=== PATIENT | female | born 1980 | race Caucasian/White ===

== ENCOUNTER 2020-06-15 05:25 | Inpatient (IN) | payer OTHER ==
[2020-06-15] MEDS ORDERED: Oxytocin/Normal Saline 60 UNIT/1,000 ML BAG ONE (08:12)
--- NOTE | 2020-06-15 08:20 | US ---
PROCEDURE INFORMATION: Exam: US Biophysical Profile With Non-Stress Test Exam date and time: 06/15/2020 7:20 AM Age: 39 years old Clinical indication: status abnormalities: ; Abnormal heart rate; Single gestation; Third trimester (28 wks 0 days until delivery); ; Patient HX: Decreased heart variability, breech TECHNIQUE: Imaging protocol: biophysical profile with non-stress test. COMPARISON: No relevant prior studies available. FINDINGS: Gestation: Single viable intrauterine gestation in breech presentation. heart rate: heart rate is 146 beats minute. Amniotic fluid index: Amniotic fluid index is 3.6 cm with the largest pocket measuring 1.9 cm. BIOPHYSICAL PROFILE: Breathin/2 Gross body movements: 2/2 tone: 2/2 Qualitative amniotic fluid: 0/2 Reactive heart rate: 0/2 Biophysical Profile Score: 10/10 IMPRESSION: Single viable intrauterine gestation in breech presentation. Total biophysical profile score is 4/10.
[2020-06-15] MEDS ORDERED: Sodium Chloride 0.9% 10 ML Syringe FLUSH PRN (08:25)
[2020-06-15] MEDS ORDERED: Tranexamic Acid 1,000 MG in Sodium Chloride 0.9% 100 ML IV PRN ×2 (08:25→09:56)
[2020-06-15] MEDS ORDERED: ceFAZolin 2 GM in Premix Bag 1 BAG IV ONE (08:25)
[2020-06-15] MEDS ORDERED: Citric Acid/Sodium Citrate Solution 30 ML Cup PO ONE (08:25)
[2020-06-15] MEDS ORDERED: Oxytocin/Normal Saline 30 UNIT/500 ML BAG IV SCH (08:30)
[2020-06-15] MEDS ORDERED: Lactated Ringers 1,000 ML IV SCH ×2 (08:30)
--- NOTE | 2020-06-15 09:31 | HP ---
HISTORY OF PRESENT ILLNESS: This is a 39-year-old, G3, P1-0-1-1 at 38 weeks and 3 days with a complicated by advanced maternal age and A1 gestational diabetes, presented to triage this morning with some light vaginal bleeding. Still movement. No loss of fluid. Some rare contractions. OB HISTORY: The patient has had 1 vaginal delivery, 1 elective termination. 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 PAST MEDICAL HISTORY: Negative. PAST SURGICAL HISTORY: [place] teeth removed. SOCIAL HISTORY: The patient does not smoke. ALLERGIES: The patient has no known drug allergies. LABS: Blood type is A positive, antibody negative, rubella immune, syphilis negative, hep B negative, HIV negative, gonorrhea and chlamydia negative, hep C negative. Her 1 hour was 202. She also had a 3 hour that was also abnormal. Quad screen was negative. Group B strep was positive and she did have a screening ultrasound, which was normal and interval growth scan was normal. PHYSICAL EXAMINATION: The patient's blood pressure 150/79. The patient is afebrile. The EFM does show accels with variability, but does have late decels. She has rare contractions. BPP unfortunately showed the infant is still breech, she did have an attempted version a few weeks back, and the BPP is 4/8, off for fluid and breathing. No active bleeding in the triage room. ASSESSMENT AND PLAN: A 39-year-old, G3, P1-0-1-1 with a complicated by A1 gestational diabetes and advanced maternal age, now with persistent breech presentation and non-reassuring testing in the setting of vaginal bleeding as well as elevated blood pressure. Therefore, we will send -induced hypertension labs. The patient does consent to a primary due to the abnormal BPP and breech presentation. We will proceed this morning. [facility] /[id number] [facility]NEUR HEALTHAlfie
[2020-06-15] MEDS ORDERED: Ondansetron 4 MG/2 ML SDV IVPUSH PRN (09:56)
[2020-06-15] MEDS ORDERED: diphenhydrAMINE 50 MG/ML SDV IVPUSH PRN (09:56)
[2020-06-15] MEDS ORDERED: Naloxone 2 MG/2 ML Syringe IVPUSH PRN (09:56)
[2020-06-15] MEDS ORDERED: Misoprostol 400 MCG (4 X 100 MCG TAB) RECTAL PRN (09:56)
[2020-06-15] MEDS ORDERED: Methylergonovine 0.2 MG/1 ML Amp IM PRN (09:56)
[2020-06-15] MEDS ORDERED: Carboprost Tromethamine 250 MCG/1 ML Amp IM PRN (09:56)
[2020-06-15] MEDS ORDERED: Acetaminophen 325 MG Tab PO PRN (09:56)
[2020-06-15] MEDS ORDERED: ePHEDrine 50 MG/ML SDV IVPUSH PRN (09:56)
[2020-06-15] MEDS: Lactated Ringers 1,000 ML IV SCH ×2 (12:25→21:43)
[2020-06-15] MEDS: Simethicone 80 MG Tab.Chew PO SCH ×3 (12:59→21:38)
--- NOTE | 2020-06-15 13:01 | OR ---
DATE: 06/15/2020 LOCATION: [facility]. PREOPERATIVE DIAGNOSES: This is an intrauterine at 38 weeks' gestational age with breech presentation, had failed external cephalic version previously. complicated by gestational diabetes and advanced maternal age. The patient now with vaginal bleeding and nonreassuring biophysical profile. POSTOPERATIVE DIAGNOSES: This is an intrauterine at 38 weeks' gestational age with breech presentation, had failed external cephalic version previously. complicated by gestational diabetes and advanced maternal age. The patient now with vaginal bleeding and nonreassuring biophysical profile. PROCEDURE: Primary low transverse section. SURGEON: Dr. Vasquez. BONDACTOR MACHINE OPERATOR: Dr. Jane. FINDINGS: There was a viable , weight 5 pounds 13 ounces. score was 8 and 9. ESTIMATED BLOOD LOSS: 500 mL. PROCEDURE IN DETAIL: The patient did arrive on Labor and Delivery with some mild vaginal bleeding. She had previously had an external cephalic version attempted. With the vaginal bleeding, BPP was performed and it was 4/10. She did lose points for breathing, low fluid and there were some late decels on the monitoring. Therefore, she did consent to a primary low-transverse section. She was taken to the operating room where she was prepped and draped in a normal sterile fashion with a Anguiano in place and a leftward tilt. The skin incision was made 2 fingerbreadths above the pubic symphysis, carried down to the underlying fascia. Fascia was incised in the midline. Fascial incision was extended laterally with heavy scissors. Upper aspect of the fascia was grasped with Jorge clamps and the rectus muscles were dissected off bluntly and with the Bovie. Lower aspect of the fascia was grasped with Jorge clamps and again the rectus muscles were dissected off bluntly and with the Bovie. Rectus muscles were in the midline. Peritoneum was entered with blunt finger dissection. The peritoneum was stretched open. Bladder was inserted. Vesicouterine peritoneum was grasped with a pickup, entered sharply with a Metzenbaum scissors, and the bladder flap was created digitally. Bladder blade was reinserted. Lower uterine segment was incised in a transverse fashion and then incision was extended using the Tee method. AROM was clear. The infant's breech was brought out of the hysterotomy. The legs were swept. Both arms were swept and the head was delivered without any difficulty. The cord was clamped and cut. The was handed off to the waiting labor and delivery nurse. The placenta was already starting to deliver at that time, therefore, it was delivered. The uterus was exteriorized and cleared of all clots and debris. The hysterotomy was repaired with a running locked 0 Vicryl with a 2nd layer of 0 Vicryl imbricating. Ovaries, tubes, and uterus all appeared normal. They were returned to the abdomen. The pelvis was copiously irrigated. Peritoneum was reapproximated using a running 3-0 Vicryl. Fascia was repaired using a running 0 Vicryl. The subcutaneous fat was irrigated and the skin was repaired using a 4-0 Monocryl on a Mac needle with Steri-Strips over that. The patient tolerated the procedure well. Sponge, lap, and needle counts were correct x2, and the patient was taken to the recovery room in stable condition to be with her baby. [facility] /[id number] MTDD
[2020-06-15] MEDS: Ketorolac 30 MG/ML SDV IVPUSH SCH ×2 (17:01→21:38)
[2020-06-15] MEDS: Docusate Sodium 100 MG Cap PO PRN (21:38)
[2020-06-16] MEDS: Ketorolac 30 MG/ML SDV IVPUSH SCH (04:02)
[2020-06-16 06:04] LABS: ANION GAP 15.9 mEq/L (7-13); CHLORIDE,CL 105 mmol/L (98-107); SODIUM,NA 139 mmol/L (136-145)
[2020-06-16] MEDS: Simethicone 80 MG Tab.Chew PO SCH ×4 (09:34→21:53)
[2020-06-16] MEDS: Docusate Sodium 100 MG Cap PO PRN ×2 (09:34→21:53)
[2020-06-16] MEDS: Prenatal Multivitamin with Calcium/Folic Acid/Iron Tab PO SCH (09:34)
[2020-06-16] MEDS: Acetaminophen/oxyCODONE 325-5 MG Tab PO PRN ×4 (09:34→21:54)
[2020-06-16] MEDS: Ibuprofen 800 MG Tab PO PRN ×2 (12:37→21:53)
--- NOTE | 2020-06-16 19:01 | PN ---
DATE: 06/16/2020 SUBJECTIVE: The patient is postoperative day 1 status post primary for breech. She also has A1 gestational diabetes. Mom and baby are both doing well. She is starting to tolerate p.o. and does have good pain control. PHYSICAL EXAMINATION: Vital Signs: The patient is afebrile. Heart rate 62 to 76, blood pressure 106 to 123 systolic over 54 to 68 diastolic, respiratory rate 16 to 18, O2 sat 97% to 98%. Abdomen: Benign. Extremities: Have no tenderness. No edema. Dressing is clean, dry, and intact. The patient's blood type is A positive. She is rubella immune. COVID negative. The patient's preoperative hemoglobin was 13.3. This morning, hemoglobin 10.1. Platelets mildly low at 148. Chem-7 was normal. Blood glucose this morning was 86, which is reassuring. The patient also did have PIH labs on admission. Those were normal. Protein-creatinine ratio was 0.2. ASSESSMENT AND PLAN: Postoperative day #1 status post primary with A1 gestational diabetes. The patient can stop checking her blood glucoses as her blood glucose this morning was great. The patient will continue postoperative cares, primarily removing the Anguiano and making sure we can void. [facility] /[id number] MTDD
[2020-06-17] MEDS: Acetaminophen/oxyCODONE 325-5 MG Tab PO PRN ×4 (02:41→21:14)
[2020-06-17] MEDS: Prenatal Multivitamin with Calcium/Folic Acid/Iron Tab PO SCH (08:08)
[2020-06-17] MEDS: Simethicone 80 MG Tab.Chew PO SCH ×4 (08:08→21:13)
[2020-06-17] MEDS: Docusate Sodium 100 MG Cap PO PRN ×2 (08:09→21:13)
[2020-06-17] MEDS: Ibuprofen 800 MG Tab PO PRN ×2 (08:10→16:46)
[2020-06-17] MEDS ORDERED: Oxytocin/Normal Saline 30 UNIT/500 ML BAG IV ONE (10:05)
[2020-06-17] MEDS ORDERED: Dexamethasone 4 MG/ML SDV IV ONE (16:01)
[2020-06-17] MEDS ORDERED: Ketorolac 30 MG/ML SDV IVPUSH ONE (16:01)
[2020-06-17] MEDS ORDERED: Lactated Ringers 1,000 ML IV ONE (16:01)
[2020-06-17] MEDS ORDERED: Ondansetron 4 MG/2 ML SDV IV ONE (16:01)
[2020-06-17] MEDS ORDERED: Morphine PF 1 MG/ML Amp ITHECAL ONE (16:01)
--- NOTE | 2020-06-17 23:49 | PCM.PN ---
- General Info Date of Service: 06/17/20 (POD #2) - Patient Data Vitals - Most Recent: Last Vital Signs Temp 98.9 F 06/17/20 20:00 Pulse 78 06/17/20 20:00 Resp 16 06/17/20 20:00 BP 140/70 06/17/20 20:00 Pulse Ox 100 06/17/20 20:00 Weight - Most Recent: 195 lb I&O - Last 24 Hours: Intake & Output 06/17/20 06/17/20 06/18/20 14:59 22:59 06:59 Intake Total 100 Balance 100 Med Orders - Current: Current Medications Acetaminophen (Tylenol) 650 mg PO Q6H PRN PRN Reason: Mild Pain (1-3) or Fever Carboprost Tromethamine (Hemabate Ds) 250 mcg IM ONETIME PRN PRN Reason: Bleeding Diphenhydramine HCl (Benadryl) 25 mg IVPUSH Q6H PRN PRN Reason: Itching or Nausea Docusate Sodium (Colace) 100 mg PO Q12H PRN PRN Reason: Constipation Last Admin: 06/17/20 21:13 Dose: 100 mg Documented by: Ephedrine Sulfate (Ephedrine Sulfate) 5 mg IVPUSH SEECOMMENT PRN PRN Reason: Other Lactated Ringer's (Ringers, Lactated) 1,000 mls @ 500 mls/hr IV .BOLUS BLANE Last Admin: 06/15/20 08:30 Dose: 500 mls/hr Documented by: Oxytocin/Sodium Chloride (Pitocin In Ns 30 Unit/500 Ml) 30 unit in 500 mls @ 2 mls/hr IV TITRATE BLANE; Protocol Last Titration: 06/15/20 12:00 Dose: 0 munits/min, 0 mls/hr Documented by: Lactated Ringer's (Ringers, Lactated) 1,000 mls @ 125 mls/hr IV ASDIRECTED BLANE Last Admin: 06/15/20 21:43 Dose: 125 mls/hr Documented by: Tranexamic Acid 1,000 mg/ (Sodium Chloride) 110 mls @ 660 mls/hr IV ONETIME PRN PRN Reason: Bleeding Ibuprofen (Motrin) 800 mg PO Q8H PRN PRN Reason: Cramping Last Admin: 06/17/20 16:46 Dose: 800 mg Documented by: Methylergonovine Maleate (Methergine) 0.2 mg IM ONETIME PRN PRN Reason: Excessive Vaginal Bleeding Misoprostol (Cytotec) 800 mcg RECTAL ASDIRECTED PRN PRN Reason: Excessive bleeding Naloxone HCl (Narcan) 0.1 mg IVPUSH SEECOMMENT PRN PRN Reason: Respiratory Depression Ondansetron HCl (Zofran) 4 mg IVPUSH Q4H PRN PRN Reason: Nausea/Vomiting Oxycodone/Acetaminophen (Percocet 325-5 Mg) 1 tab PO Q4H PRN PRN Reason: Pain (moderate 4-6) Last Admin: 06/17/20 21:14 Dose: 1 tab Documented by: Oxycodone/Acetaminophen (Percocet 325-5 Mg) 2 tab PO Q4H PRN PRN Reason: Pain (moderate 4-6) Last Admin: 06/17/20 08:09 Dose: 2 tab Documented by: Prenat Multivit/[place]/Iron/Folic Ac ( Plus Iron) 1 each PO DAILY [facility] Last Admin: 06/17/20 08:08 Dose: 1 each Documented by: Simethicone (Simethicone) 160 mg PO QID [facility] Last Admin: 06/17/20 21:13 Dose: 160 mg Documented by: Sodium Chloride (Saline Flush) 10 ml FLUSH ASDIRECTED PRN PRN Reason: Keep Vein Open Discontinued Medications Citric Acid/Sodium Citrate (Bicitra Solution) 30 ml PO ONETIME ONE Stop: 06/15/20 08:26 Last Admin: 06/15/20 12:30 Dose: 30 ml Documented by: Dexamethasone (Decadron) 8 mg IV .STK-MED ONE Stop: 06/17/20 16:02 Cefazolin Sodium/Dextrose (Ancef 2 Gm/50 Ml) Confirm Administered Dose 50 mls @ as directed .ROUTE .STK-MED ONE Stop: 06/15/20 08:13 Oxytocin/Sodium Chloride (Pitocin In Ns 30 Unit/500 Ml) Confirm Administered Dose 60 unit in 1,000 mls @ as directed .ROUTE .STK-MED ONE Stop: 06/15/20 08:13 Lactated Ringer's (Ringers, Lactated) 1,000 mls @ 125 mls/hr IV ASDIRECTED BLANE Tranexamic Acid 1,000 mg/ (Sodium Chloride) 110 mls @ 660 mls/hr IV ONETIME PRN PRN Reason: Bleeding Cefazolin Sodium/Dextrose 2 gm (/ Premix) 50 mls @ 100 mls/hr IV ONETIME ONE Stop: 06/15/20 08:54 Last Admin: 06/15/20 08:58 Dose: 100 mls/hr Documented by: Oxytocin/Sodium Chloride (Pitocin In Ns 30 Unit/500 Ml) 30 unit in 500 mls @ as directed IV .STK-MED ONE Stop: 06/17/20 10:06 Lactated Ringer's (Ringers, Lactated) 1,000 mls @ as directed IV .STK-MED ONE Stop: 06/17/20 16:02 Ketorolac Tromethamine (Toradol) 15 mg IVPUSH Q6H BLANE Stop: 06/16/20 04:01 Last Admin: 06/16/20 04:02 Dose: 15 mg Documented by: Ketorolac Tromethamine (Toradol) 30 mg IVPUSH .STK-MED ONE Stop: 06/17/20 16:02 Morphine Sulfate (Duramorph Pf) 0.2 mg ITHECAL .STK-MED ONE Stop: 06/17/20 16:02 Ondansetron HCl (Zofran) 4 mg IV .STK-MED ONE Stop: 06/17/20 16:02 - Patient Data Result Diagrams: 06/16/20 05:25 06/16/20 05:25 Sepsis Event Note - Evaluation Sepsis Screening Result: No Definite Risk - Focused Exam Vital Signs: Vital Signs Temp Pulse Resp BP Pulse Ox 06/17/20 20:00 98.9 F 78 16 140/70 100 06/17/20 16:00 99.2 F 85 16 140/73 95 06/17/20 12:00 98.9 F 89 16 151/74 H 100 - My Orders Last 24 Hours: My Active Orders 06/17/20 Lunch Regular Diet [DIET] 06/17/20 12:27 Consult to Radio Interference Trouble Shooter [CONS] Routine
[2020-06-18] MEDS: Ibuprofen 800 MG Tab PO PRN ×2 (01:37→10:05)
[2020-06-18] MEDS: Acetaminophen/oxyCODONE 325-5 MG Tab PO PRN ×3 (01:37→10:32)
[2020-06-18] MEDS: Prenatal Multivitamin with Calcium/Folic Acid/Iron Tab PO SCH (10:05)
[2020-06-18] MEDS: Docusate Sodium 100 MG Cap PO PRN (10:05)
[2020-06-18] MEDS: Simethicone 80 MG Tab.Chew PO SCH ×2 (10:05→18:14)
--- NOTE | 2020-06-18 12:57 | PCM.DCSUM1 ---
Discharge Summary - Hospital Course Diagnosis: Stroke: No - Discharge Data Discharge Disposition: Home, Self-Care 01 Condition: Good - Referral to Home Health Primary Care Physician: Lisha Marcelino MD - Patient Summary/Data Consults: Consultations 06/17/20 12:27 Consult to Head Mva Reactor Operator [CONS] Routine - Patient Instructions Driving: Do Not Drive Showering/Bathing: May Shower Wound/Incision Care: Keep Operative Site/Wound Site Clean and Dry Notify Provider of: Fever, Increased Pain, Swelling and Redness, Drainage, Nausea and/or Vomiting - Discharge Plan *PRESCRIPTION DRUG MONITORING PROGRAM REVIEWED*: No *COPY OF PRESCRIPTION DRUG MONITORING REPORT IN PATIENT BELINDA: No Home Medications: Home Meds Pnv No.95/Ferrous Fum/Folic AC [ Vitamin Tablet] 1 tab PO DAILY 05/08/20 [History] Patient Handouts: Care After Delivery, Incision Care, Adult - Discharge Summary/Plan Comment DC Time >30 min.: No Discharge Summary/Plan Comment: follow up Wednesday for incision check and recheck BP, headache and nipple pain. APNO Rx to [facility]. - Patient Data Vitals - Most Recent: Last Vital Signs Temp 98.4 F 06/18/20 08:00 Pulse 75 06/18/20 08:00 Resp 18 06/18/20 08:00 BP 134/86 06/18/20 08:00 Pulse Ox 99 06/18/20 08:00 Weight - Most Recent: 195 lb Med Orders - Current: Current Medications Acetaminophen (Tylenol) 650 mg PO Q6H PRN PRN Reason: Mild Pain (1-3) or Fever Carboprost Tromethamine (Hemabate Ds) 250 mcg IM ONETIME PRN PRN Reason: Bleeding Diphenhydramine HCl (Benadryl) 25 mg IVPUSH Q6H PRN PRN Reason: Itching or Nausea Docusate Sodium (Colace) 100 mg PO Q12H PRN PRN Reason: Constipation Last Admin: 06/18/20 10:05 Dose: 100 mg Documented by: Ephedrine Sulfate (Ephedrine Sulfate) 5 mg IVPUSH SEECOMMENT PRN PRN Reason: Other Lactated Ringer's (Ringers, Lactated) 1,000 mls @ 500 mls/hr IV .BOLUS BLANE Last Admin: 06/15/20 08:30 Dose: 500 mls/hr Documented by: Oxytocin/Sodium Chloride (Pitocin In Ns 30 Unit/500 Ml) 30 unit in 500 mls @ 2 mls/hr IV TITRATE [facility]; Protocol Last Titration: 06/15/20 12:00 Dose: 0 munits/min, 0 mls/hr Documented by: Lactated Ringer's (Ringers, Lactated) 1,000 mls @ 125 mls/hr IV ASDIRECTED [facility] Last Admin: 06/15/20 21:43 Dose: 125 mls/hr Documented by: Tranexamic Acid 1,000 mg/ (Sodium Chloride) 110 mls @ 660 mls/hr IV ONETIME PRN PRN Reason: Bleeding Ibuprofen (Motrin) 800 mg PO Q8H PRN PRN Reason: Cramping Last Admin: 06/18/20 10:05 Dose: 800 mg Documented by: Methylergonovine Maleate (Methergine) 0.2 mg IM ONETIME PRN PRN Reason: Excessive Vaginal Bleeding Misoprostol (Cytotec) 800 mcg RECTAL ASDIRECTED PRN PRN Reason: Excessive bleeding Naloxone HCl (Narcan) 0.1 mg IVPUSH SEECOMMENT PRN PRN Reason: Respiratory Depression Ondansetron HCl (Zofran) 4 mg IVPUSH Q4H PRN PRN Reason: Nausea/Vomiting Oxycodone/Acetaminophen (Percocet 325-5 Mg) 1 tab PO Q4H PRN PRN Reason: Pain (moderate 4-6) Last Admin: 06/18/20 10:32 Dose: 1 tab Documented by: Oxycodone/Acetaminophen (Percocet 325-5 Mg) 2 tab PO Q4H PRN PRN Reason: Pain (moderate 4-6) Last Admin: 06/17/20 08:09 Dose: 2 tab Documented by: Prenat Multivit/Hand Expansion Envelope Maker/Iron/Folic Ac ( Plus Iron) 1 each PO DAILY [facility] Last Admin: 06/18/20 10:05 Dose: 1 each Documented by: Simethicone (Simethicone) 160 mg PO QID [facility] Last Admin: 06/18/20 10:05 Dose: 160 mg Documented by: Sodium Chloride (Saline Flush) 10 ml FLUSH ASDIRECTED PRN PRN Reason: Keep Vein Open Discontinued Medications Citric Acid/Sodium Citrate (Bicitra Solution) 30 ml PO ONETIME ONE Stop: 06/15/20 08:26 Last Admin: 06/15/20 12:30 Dose: 30 ml Documented by: Dexamethasone (Decadron) 8 mg IV .STK-MED ONE Stop: 06/17/20 16:02 Cefazolin Sodium/Dextrose (Ancef 2 Gm/50 Ml) Confirm Administered Dose 50 mls @ as directed .ROUTE .STK-MED ONE Stop: 06/15/20 08:13 Oxytocin/Sodium Chloride (Pitocin In Ns 30 Unit/500 Ml) Confirm Administered Dose 60 unit in 1,000 mls @ as directed .ROUTE .STK-MED ONE Stop: 06/15/20 08:13 Lactated Ringer's (Ringers, Lactated) 1,000 mls @ 125 mls/hr IV ASDIRECTED [facility] Tranexamic Acid 1,000 mg/ (Sodium Chloride) 110 mls @ 660 mls/hr IV ONETIME PRN PRN Reason: Bleeding Cefazolin Sodium/Dextrose 2 gm (/ Premix) 50 mls @ 100 mls/hr IV ONETIME ONE Stop: 06/15/20 08:54 Last Admin: 06/15/20 08:58 Dose: 100 mls/hr Documented by: Oxytocin/Sodium Chloride (Pitocin In Ns 30 Unit/500 Ml) 30 unit in 500 mls @ as directed IV .STK-MED ONE Stop: 06/17/20 10:06 Lactated Ringer's (Ringers, Lactated) 1,000 mls @ as directed IV .STK-MED ONE Stop: 06/17/20 16:02 Ketorolac Tromethamine (Toradol) 15 mg IVPUSH Q6H [facility] Stop: 06/16/20 04:01 Last Admin: 06/16/20 04:02 Dose: 15 mg Documented by: Ketorolac Tromethamine (Toradol) 30 mg IVPUSH .STK-MED ONE Stop: 06/17/20 16:02 Morphine Sulfate (Duramorph Pf) 0.2 mg ITHECAL .STK-MED ONE Stop: 06/17/20 16:02 Ondansetron HCl (Zofran) 4 mg IV .STK-MED ONE Stop: 06/17/20 16:02
== END 2020-06-18 14:00 | disposition home or self-care (01) | DRG 788 ==
LOC: DL.OBCHECK 05:25 → DL.OB 08:13 → UNDOADMIN 08:13
PROVIDERS: ADMIT Obstetrics & Gynecology; ATTEND Family Medicine
PROC: 10D00Z1 Extraction of Products of Conception, Low, Open Approach (ICD-10-PCS; principal; 2020-06-15)
DX: O32.1XX0 Maternal care for breech presentation, not applicable or unspecified (principal); O24.429 Gestational diabetes mellitus in childbirth, unspecified control; Z3A.38 38 weeks gestation of pregnancy; Z37.0 Single live birth; O24.425 Gestational diabetes mellitus in childbirth, controlled by oral hypoglycemic drugs; O76 Abnormality in fetal heart rate and rhythm complicating labor and delivery
CPT/HCPCS: 01961; 36415; 59025; 76819; 80048; 81003; 82565; 82570; 83615; 84156; 84450; 84460; 84520; 84550; 85027; 86850; 86900; 86901; A9270-GY; J0690; J1100; J1885; J2274; J2405; J2590; J7120; U0002